=== PATIENT | female | born 1970 | race Caucasian/White ===

== ENCOUNTER → 2017-03-21 | Day surgery (SDC) | payer BC ==
[~2017-03-21] MED LIST: ACETYLCYSTEINE 20% 6,000 MG/30 ML ORAL SOLN VIAL ONE; LACTATED RINGER'S 1000 ML INJ 1,000 ML ONE; PROPOFOL 500 MG/50 ML BTL IV ONE; SODIUM CHLORIDE 0.9% INJ 10 ML ONE
--- NOTE | 2017-03-21 11:17 | GIPROC ---
[facility] [address] [facility], [address] EGD WITH HALO PROCEDURE REPORT EXAM DATE: 03/21/2017 PATIENT NAME: Cheli Winters MR #: [id number] BIRTHDATE: 1970 ORDER #: [id number] ATTENDING: Bisi Vigil MD COSMETICS COUNTER MANAGER: Saima Luna RN STATUS: outpatient INDICATIONS: The patient is a 46 yr old female here for an EGD with HALO90 ablation due to therapeutic procedure and Sosa's PROCEDURE PERFORMED: EGD w/ ablation MEDICATIONS: None and Per Anesthesia. TOPICAL ANESTHETIC: none CONSENT: The patient understands the risks and benefits of the procedure and understands that these risks include, but are not limited to: sedation, allergic reaction, infection, perforation and/or bleeding. Alternative means of evaluation and treatment include, among others: physical exam, x-rays, and/or surgical intervention. The patient elects to proceed with this endoscopic procedure. DESCRIPTION OF PROCEDURE: checked for proper function. Hand hygiene and appropriate measures for infection prevention was taken. After the risks, benefits and alternatives of the procedure were thoroughly explained, Informed consent was verified, confirmed and timeout was successfully executed by the treatment team. The EG-[id number] ([id number]) endoscope was introduced through the mouth and advanced to the second portion of the duodenum. The mucosa was examined both on insertion and withdrawal. Retroflexion was performed in the gastric fundus. The area of the Sosa's esophagus was mapped. The esophagus was irrigated with 1% N-acetylcysteine (Mucomyst) to clear the mucous layer from the lining of the esophagus and to facilitate energy delivery. The gastroscope was removed and HALO-90 ablation device was attached to the tip of the gastroscope, which was re-introduced into the esophagus under direct visualization. HALO-90 device was directed to the targeted area of Sosa's esophagus. With the targeted area in 12 o' clock position with the endoscopic view, radiofrequency energy was applied twice at the same site (300 W and 12 J/cm2). The ablated zone was scrapped with the tip of the HALO-90 device to remove the coagulative debris. The gastroscope was removed and the HALO-90 device was cleaned. The gastroscope was reintroduced with the HALO-90 device and the targeted areas were treated with radiofrequency energy two more times. (Total of four application in one region). The gastroscope was inserted into the stomach, the gastric contents were suctioned and the ablation zone was inspected. Esophagoscopy confirmed complete ablation of all intestinal metaplasia. Rest of the findings are given below. The patient tolerated the procedure well and was sent to Recovery in stable condition. 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 RFA procedure: Given the above findings, the decision was made to treat the Sosa's esophagus with endoscopic ablation, using the Halo 90 cap device. RF ablation of the GE junction was performed. 26. ADVERSE EVENTS: There were no complications. 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 Continue PPI 2. Liquid diet for 24 hours advance as tolerated RTC in 1 months EGD possible barrex in 6 months REPEAT EXAM: Return 6 months EGD Bisi Vigil MD eSigned: Bisi Vigil MD 03/21/2017 11:16 AM cc: PATIENT NAME: Cheli Winters MR#: [id number]
== END | disposition home or self-care (01) ==
LOC: ESDC 08:17
PROVIDERS: ATTEND Hospitalist
DX: K22.70 Barrett's esophagus without dysplasia (principal)
CPT/HCPCS: 00740; 43270; J3010; J7120